=== PATIENT | female | born 1955 | race Caucasian/White ===

== ENCOUNTER 2021-03-12 09:46 | Outpatient (CLI) | payer OTHER, MEDICARE, SELFPAY ==
--- NOTE | ~2021-03-12 | MR_ITS ---
EXAMINATION: MR abdomen wo/w con DATE: 03/12/2021 11:06 INDICATION: Left kidney mass. Bladder cancer. TECHNIQUE: Magnetic resonance imaging (MRI) of the neck was performed without and with 20 mL MultiHan ce intravenous contrast. Sequences included coronal T2-weighted FS FSE, coronal and axial FIESTA FS, coronal LAVA-flex, axial LAVA, axial T2-weighted FSE, axial T1-weighted dual-echo FSPGR, axial STIR F SE, and axial DWI. Postcontrast sequences included coronal LAVA-flex and a time course of axial LAVA. COMPARISON: None. FINDINGS: There is diffuse hepatic steatosis. The gallbladder is absent. The spleen is normal. There is incomplete pancreas divisum. The adrenal glands are normal. There are cysts in the kidneys measuri ng up to 12 mm on the left. There is diverticulosis of the colon without evidence of diverticulitis. There are no dilated loops of bowel. There is no free intraperitoneal fluid. There are no pathologica lly enlarged lymph nodes. IMPRESSION: 1. Benign cysts in the kidneys. Reviewed, dictated and finalized at location A. H [employer]PERVISOR
[2021-03-12 10:34] LABS: Estimated Glomerular Filt Rate > 60
== END 2021-03-12 09:47 | disposition home or self-care (01) ==
PROVIDERS: PCP Internal Medicine; Visit Provider Nurse Practitioner Adult Health
DX: N28.1 Cyst of kidney, acquired (principal)
CPT/HCPCS: 74183; A9577